=== PATIENT | female | born 1960 | race Caucasian/White ===

== ENCOUNTER 2020-07-04 20:38 | Observation (INO) ==
[2020-07-04] MEDS ORDERED: Aspirin 81 MG TAB.CHEW PO STA (21:09)
[2020-07-04] MEDS ORDERED: GI Cocktail 40 ML EACH PO ONE (21:09)
[2020-07-04 21:31] LABS: Basophils # 0.1 K/mcL (0.0-0.2); Eosinophils # 0.3 K/mcL (0.0-0.6); Eosinophils % 4.9 %; Hematocrit 37.2 % (35.3-44.9); Hemoglobin 12.4 g/dL (11.5-15.4); Immature Granulocytes % 0.2 % (0-4); Lymphocytes # 2.8 K/mcL (0.6-4.6); Lymphocytes % 54.7 %; Mean Corpuscular HGB Conc 33.3 g/dL (31.6-35.5); Mean Corpuscular Hemoglobin 30.3 pg (28.0-33.3); Mean Platelet Volume 10.3 fL (9.4-12.4); Monocytes # 0.6 K/mcL (0.0-1.3); Monocytes % 11.1 %; Neutrophils # 1.4 K/mcL (1.6-8.9); Platelet Count 197 K/mcL (140-400); Red Blood Count 4.09 M/mcL (3.82-4.97); Red Cell Distribution Width 12.8 % (11.5-14.5); Segmented Neutrophils % 28.1 %; White Blood Count 5.1 K/mcL (4.3-11.1)
[2020-07-04 21:38] LABS: INR 1.1; Prothrombin Time 12.5 Seconds (9.4-12.1)
[2020-07-04 21:47] LABS: Alanine Aminotransferase 11 Units/L (7-52); Albumin 3.9 g/dL (3.5-5.7); Albumin/Globulin Ratio 2.1 (1.1-2.2); Alkaline Phosphatase 52 Units/L (34-104); Aspartate Amino Transferase 20 Units/L (13-39); BUN/Creatinine Ratio 11 (6-26); Bilirubin,Total 0.3 mg/dL (0.3-1.0); Blood Urea Nitrogen 7 mg/dL (6-20); Calcium 8.9 mg/dL (8.6-10.3); Carbon Dioxide 27 mEq/L (23-29); Chloride 104 mEq/L (98-107); Globulin 1.9 g/dL (2.4-3.5); Glucose 83 mg/dL (70-105); Osmolality,Calculated 279 (280-300); Potassium 3.6 mEq/L (3.5-5.1); Sodium 136 mEq/L (136-145); Total Protein 5.8 g/dL (6.4-8.9); eGFR For African Americans > 60 (> 60); eGFR For Non-African Americans > 60 (> 60)
[2020-07-04 21:49] LABS: Troponin I < 0.03 ng/mL (< 0.04)
[2020-07-04] MEDS ORDERED: Ondansetron ODT 4 MG TAB.RAPDIS SL ONE ×2 (21:57→22:01)
[2020-07-04 21:59] LABS: Bilirubin,Urine Negative (Negative); Blood,Urine Trace-intact (Negative); Clarity,Urine Clear (Clear); Color,Urine Yellow (Yellow); Glucose,Urine (UA) Normal (Normal); Ketones,Urine Negative (Negative); Leukocyte Esterase,Urine Negative (Negative); Nitrite,Urine Negative (Negative); Protein,Urine Negative (Neg-Trace); Urobilinogen,Urine Normal (Normal)
[2020-07-04] MEDS ORDERED: Ondansetron 4 MG/2 ML VIAL IVP ONE (21:59)
[2020-07-04 22:00] LABS: RBC,Urine 0-3 per hpf (0-3); Squamous Epithelial Cell,Urine Few per hpf (None-Few)
[2020-07-04 22:01] LABS: Amorphous Sediment,Urine Few per hpf (None-Few)
[2020-07-04] MEDS ORDERED: Morphine Sulfate 2 MG/ML SYRINGE IVP ONE (22:08)
[2020-07-04] MEDS ORDERED: Ketorolac 30 MG/ML VIAL IVP ONE (22:11)
[2020-07-04] MEDS ORDERED: *HR* Promethazine 25 MG/ML VIAL IM ONE (23:20)
[2020-07-05] MEDS ORDERED: Ondansetron ODT 4 MG TAB.RAPDIS SL PRN (01:19)
[2020-07-05] MEDS ORDERED: *HR* HYDROcodone/Acet 7.5/325 mg TABLET PO PRN (01:19)
[2020-07-05] MEDS ORDERED: Naloxone 0.4 MG/ML INJ IVP PRN (01:19)
[2020-07-05] MEDS ORDERED: Loratadine 10 MG TABLET PO PRN (01:19)
[2020-07-05] MEDS ORDERED: *HR* Promethazine 25 MG/ML VIAL IM PRN (01:19)
[2020-07-05] MEDS ORDERED: Ondansetron 4 MG/2 ML VIAL IVP PRN (01:19)
[2020-07-05] MEDS ORDERED: Magnesium Oxide 400 MG TABLET PO SCH (09:00)
[2020-07-05] MEDS ORDERED: lisinopriL 20 MG TABLET PO SCH (09:00)
[2020-07-05] MEDS ORDERED: Aspirin Enteric Coated 81 MG Tablet PO SCH (09:00)
[2020-07-05 12:06] VITALS: BP 121/74
[2020-07-08] MEDS ORDERED: Cholecalciferol (D-3) 1,000 UNIT (25MCG) TABLET PO SCH (01:49)
== END 2020-07-05 15:00 | disposition home or self-care (01) ==
LOC: INPGRE 20:38 → EMEROOGRE 20:38 → INPGRE 07-05 01:22
PROVIDERS: ADMIT Internal Medicine; ATTEND Internal Medicine